=== PATIENT | male | born 1965 | race Caucasian/White ===

== ENCOUNTER 2018-06-11 20:29 | Emergency (ER) | payer MEDICAID ==
[2018-06-11] MEDS ORDERED: Sodium Chloride 0.9% 1,000 ML IV ONE (20:38)
[2018-06-11] MEDS ORDERED: methylPREDNISolone Sodium Succinate 125 MG/2 ML SDV IVPUSH ONE (20:38)
[2018-06-11] MEDS ORDERED: Albuterol/Ipratropium 3.0-0.5 MG/3 ML Neb Soln NEB ONE ×2 (20:38→21:59)
--- NOTE | 2018-06-11 20:41 | EDM.PDOC ---
ED HPI GENERAL MEDICAL PROBLEM - General Chief Complaint: Respiratory Problem Stated Complaint: CONGESTION [id number] Time Seen by Provider: 06/11/18 20:38 Source of Information: Reports: Patient History Limitations: Reports: No Limitations - History of Present Illness INITIAL COMMENTS - FREE TEXT/NARRATIVE: 1 week h/o coughing all night not sleeping smoker feels worse today - Related Data Allergies Allergy/AdvReac Type Severity Reaction Status Date / Time No Known Allergies Allergy Verified 01/24/14 21:54 Home Meds: Home Meds . [No Known Home Meds] 01/24/14 [History] Past Medical History - Past Health History Medical/Surgical History: Denies Medical/Surgical History ED ROS GENERAL - Review of Systems Review Of Systems: ROS reveals no pertinent complaints other than HPI. ED EXAM, GENERAL - Physical Exam Exam: See Below Exam Limited By: No Limitations General Appearance: Alert, WD/WN, Mild Distress, Other (congestion) Ears: Hearing Grossly Normal Throat/Mouth: Normal Voice, No Airway Compromise Head: Atraumatic Neck: Non-Tender, Full Range of Motion Respiratory/Chest: No Accessory Muscle Use, Decreased Breath Sounds, Rhonchi, Wheezing. No: Retractions, Splinting Cardiovascular: Regular Rate, Rhythm GI/Abdominal: Soft, Non-Tender Neurological: Alert, Oriented, Normal Cognition, Normal Gait, No Motor/Sensory Deficits Psychiatric: Normal Affect, Normal Mood Skin Exam: Warm, Dry, Normal Color Lymphatic: No Adenopathy Course - Vital Signs Last Recorded V/S: Last Vital Signs Temp 36.7 C 06/11/18 20:33 Pulse 90 06/11/18 21:10 Resp 18 06/11/18 20:33 BP 105/57 L 06/11/18 20:33 Pulse Ox 93 L 06/11/18 20:33 - Orders/Labs/Meds Orders: Active Orders 24 hr Category Date Time Status RT Aerosol Therapy [RC] ASDIRECTED Care 06/11/18 20:38 Active Labs: Laboratory Tests 06/11/18 06/11/18 Range/Units 20:50 20:50 WBC 10.8 H (5.0-10.0) 10^3/uL RBC 4.87 (4.6-6.2) 10^6/uL Hgb 15.1 (14.0-18.0) g/dL Hct 45.6 (40.0-54.0) % MCV 93.6 (80-100) fL MCH 31.0 (27.0-34.0) pg MCHC 33.1 (33.0-35.0) g/dL Plt Count 219 (150-450) 10^3/uL Neut % (Auto) 64.5 (42.2-75.2) % Lymph % (Auto) 25.2 (20.5-50.1) % Esmeralda % (Auto) 7.8 (2-8) % Eos % (Auto) 2.1 (1.0-3.0) % Baso % (Auto) 0.4 (0.0-1.0) % Sodium 136 (135-145) mmol/L Potassium 3.8 (3.6-5.0) mmol/L Chloride 102 (101-111) mmol/L Carbon Dioxide 26.0 (21.0-31.0) mmol/L Anion Gap 11.8 BUN 12 (7-18) mg/dL Creatinine 1.1 (0.6-1.3) mg/dL Est Cr Clr Drug Dosing 75.11 mL/min Estimated GFR (MDRD) > 60 BUN/Creatinine Ratio 10.90 Glucose 144 H (74-105) mg/dL Calcium 9.2 (8.4-10.2) mg/dl Total Bilirubin 0.7 (0.2-1.0) mg/dL AST 27 (10-42) IU/L ALT 16 (10-60) IU/L Alkaline Phosphatase 64 (42-121) IU/L Total Protein 7.2 (6.7-8.2) g/dl Albumin 4.2 (3.2-5.5) g/dl Globulin 3.0 Albumin/Globulin Ratio 1.40 Meds: Medications Discontinued Medications Generic Name Dose Route Start Last Admin Trade Name Freq PRN Reason Stop Dose Admin Albuterol/Ipratropium 3 ml 06/11/18 20:38 06/11/18 20:50 Duoneb 3.0-0.5 Mg/3 Ml NEB 06/11/18 20:39 3 ml ONETIME ONE Administration Ceftriaxone Sodium 1 gm 06/11/18 21:37 06/11/18 21:44 Rocephin IVPUSH 06/11/18 21:38 1 gm ONETIME ONE Administration Sodium Chloride 1,000 mls @ 999 mls/hr 06/11/18 20:38 06/11/18 20:54 Normal Saline IV 06/11/18 21:38 999 mls/hr .BOLUS ONE Administration Methylprednisolone Sodium Succinate 125 mg 06/11/18 20:38 06/11/18 20:55 Solu-Medrol IVPUSH 06/11/18 20:39 125 mg ONETIME ONE Administration - Re-Assessments/Exams Free Text/Narrative Re-Assessment/Exam: 06/11/18 21:47 re-exam; better s/p IV Rx + duoneb Departure - Departure Time of Disposition: 21:47 Disposition: Home, Self-Care 01 Condition: Good Clinical Impression: Bronchospasm with bronchitis, acute - Discharge Information Instructions: Bronchospasm, Adult, [id number] Forms: ED Department Discharge Additional Instructions: 1) rest as much as possible 2) use nebs 3 times daily as needed 3) don't sleep flat at night 4) follow up at clinic 5) recheck if there is any change or concern rx given; z-annette medrol dospak phenergan codeine syrup albuterol 2.5mg solution - My Orders Last 24 Hours: My Active Orders 06/11/18 20:38 RT Aerosol Therapy [RC] ASDIRECTED - Assessment/Plan Last 24 Hours: My Active Orders 06/11/18 20:38 RT Aerosol Therapy [RC] ASDIRECTED
[2018-06-11 21:18] LABS: ANION GAP 11.8; CHLORIDE,CL 102 mmol/L (101-111); SODIUM,NA 136 mmol/L (135-145)
[2018-06-11] MEDS ORDERED: cefTRIAXone 1 GM Vial IVPUSH ONE (21:37)
[2018-06-11] MEDS ORDERED: Codeine/Promethazine 10-6.25 MG/5 ML Syrup 5 ML UD Cup ONE (21:48)
== END 2018-06-11 22:29 | disposition home or self-care (01) ==
LOC: DL.ED 20:29
DX: J20.9 Acute bronchitis, unspecified (principal)
CPT/HCPCS: 36415; 71046; 80053; 85025; 96361; 96374; 96375; 99285; A9270; J0696; J2930; J7030